=== PATIENT | female | born 1930 | race Caucasian/White ===

== ENCOUNTER 2016-11-06 14:40 | Inpatient (IN) | payer MEDICARE ==
[~2016-11-06] VITALS: Ht 162.6 cm; Wt 80.7 kg
--- NOTE | ~2016-11-06 | CON ---
PATIENT'S NAME: VIJAYA LORENZANA [facility] AGE: 86 Y [address] ROOM: [place] [address] [place] [facility] [place]: 11/06/2016 Consultation DISCHARGE DATE: FAMILY PHYSICIAN: Salinas Fortune MD ATTENDING PHYSICIAN: Salinas Fortune DATE OF CONSULTATION: 11/06/2016 REFERRING PHYSICIAN: Jeff Pfeiffer MD CHIEF COMPLAINT: Abdominal pain. HISTORY OF PRESENT ILLNESS: The patient is an 86-year-old female who states that she was feeling well this morning; however, after eating breakfast developed acute onset of abdominal pain, she felt nauseated at that time, was somewhat diaphoretic, and then had a loose bowel movement. This intermittent abdominal cramping and loose bowel movements persisted throughout the day. With her abdominal pain, she ultimately presented to the emergency room. She said she has had a history of constipation and intermittent abdominal pain, but never anything as severe as this. She was seen, evaluated, and had a CT scan that revealed evidence of colitis and ischemic colitis could not be ruled out. She did have a mildly elevated lactate at 2.3 and white blood cell count of 17.7. Her stool cultures were negative. She does have a remote history of AFib and is not on any anticoagulation. She has been hypertensive and currently she is having minimal pain. CURRENT ILLNESSES: History of AFib, hyperlipidemia, coronary artery disease, hypertension, and history of TIAs. PREVIOUS SURGERIES: 1. Recent breast surgery. 2. Cholecystectomy. 3. Laminectomy. 4. Appendectomy. 5. Hysterectomy. 6. Cardiac stents placed, most recent 2011. ALLERGIES: SHE HAS A LONG LIST OF ALLERGIES/INTOLERANCES THAT INCLUDE TOPROL, ACCUPRIL, DIOVAN, MICARDIS, CRESTOR, LOPRESSOR, DARVOCET, REGLAN, AZULFIDINE, CLONIDINE, AND NORVASC. SOCIAL HISTORY: PATIENT'S NAME: VIJAYA LORENZANA [facility] AGE: 86 Y [address] ROOM: [place] [address] [place] [facility] [place]: 11/06/2016 Consultation DISCHARGE DATE: FAMILY PHYSICIAN: Salinas Fortune MD ATTENDING PHYSICIAN: Salinas Fortune She is , nonsmoker, and nondrinker. FAMILY HISTORY: Noncontributory. REVIEW OF SYSTEMS: She denies headache or vision changes. She did have nausea as described above as well as diarrhea. She has history of constipation. Denies hematuria. No history of hyper or hypothyroidism. No diabetes. She does have hypertension. All other review of systems is negative. PHYSICAL EXAMINATION: GENERAL: Pleasant, cooperative, 86-year-old female, who is in no acute distress. VITAL SIGNS: She is afebrile, blood pressure is 150/78. HEENT: Head is normocephalic, atraumatic. Eyes are anicteric. NECK: Without lymphadenopathy. HEART: Regular rate and rhythm. No murmurs audible. LUNGS: Clear to auscultation bilaterally. ABDOMEN: Obese, rotund, bowel sounds are present. There is very mild tenderness to palpation. No rebound or guarding. EXTREMITIES: Warm. No edema. NEUROLOGICAL: Gross motor is intact. ASSESSMENT: Nonspecific colitis. PLAN: At this point in time, I have discussed the findings with Vijaya, she really has minimal abdominal pain at this time, her stools have been nonbloody, and I think it is reasonable to continue observation with bowel rest and antibiotic treatment for her colitis. We will follow her clinically for any signs and symptoms of worsening ischemia or perforation. MD LESLIE FUNG/eitan /[id number] d: 11/07/16 0118 t: 11/23/16 1502, CONSULTATION REPORT
--- NOTE | ~2016-11-06 | DS ---
PATIENT'S NAME: VIJAYA LORENZANA [facility] AGE: 86 Y [address] ROOM: [place] [address] [place] [facility] [place]: 11/06/2016 Discharge Summary DISCHARGE DATE: 11/09/2016 FAMILY PHYSICIAN: Salinas Fortune MD ATTENDING PHYSICIAN: Salinas Fortune DISCHARGE DIAGNOSES: 1. Descending colitis secondary to ischemic colitis versus infection. 2. Hypertension. 3. Hyperlipidemia. 4. Coronary artery disease. 5. Paroxysmal atrial fibrillation. PAST MEDICAL HISTORY: 1. History of breast cancer. 2. Osteoarthritis. CONSULTS: Surgery. HOSPITAL COURSE: Ms. Vijaya Lorenzana is an 86-year-old female with the above past medical history who presented to the ED on 11/06/2016 for abdominal pain and diarrhea. She was admitted to inpatient status due to descending colitis secondary to ischemic colitis versus infection (see H and P for imaging and lab). She was put on bowel rest and IV piperacillin and tazobactam with marked improvement over the following 2 days. On 11/08/2016, she tolerated a full day of general oral diet. On 11/09/2016, her IV piperacillin and tazobactam were discontinued, and she was discharged home on her home medications. DISCHARGE MEDICATIONS: 1. Verapamil hydrochloride SR tablet 180 mg twice daily. 2. Aspirin 81 mg daily. 3. Meclizine HCl 25 mg every night at bedtime as needed. 4. Acetaminophen 325 mg every 4 hours as needed. 5. Calcium carbonate 600 mg/vitamin D3 caplet twice daily. 6. Cholecalciferol 800 units once daily. 7. Hydroxychloroquine sulfate 200 mg once daily as needed. DIET: As tolerated. CONDITION: Good. DISPOSITION: She is discharged to home on her home medications with primary care followup in 7 to 10 days. PATIENT'S NAME: VIJAYA LORENZANA [facility] AGE: 86 Y [address] ROOM: [place] [address] [place] [facility] [place]: 11/06/2016 Discharge Summary DISCHARGE DATE: 11/09/2016 FAMILY PHYSICIAN: Salinas Fortune MD ATTENDING PHYSICIAN: Salinas Fortune DARRICK SHEPPARD, MEDICAL STUDENT FOR MD SULTANA NUÑEZ/fernandol /[id number] d: 11/09/16 1350 t: 11/22/16 1631, DISCHARGE SUMMARY
--- NOTE | ~2016-11-06 | ER ---
PATIENT'S NAME: VIJAYA LORENZANA [facility] AGE: 86 Y [address] ROOM: [address] [address] LOCATION: [facility] [place] ADMIT DATE: 11/06/2016 ER/Outpatient Report DISCHARGE DATE: FAMILY PHYSICIAN: Salinas Fortune MD ATTENDING PHYSICIAN: Salinas Fortune TIME OF ARRIVAL: 1440 hours. TIME OF EVALUATION: 1446 hours. CHIEF COMPLAINT: Abdominal pain. HISTORY OF PRESENT ILLNESS: The patient is an 86-year-old female who presents to the emergency department today with a chief complaint of abdominal pain. She reports it started 8 hours prior to arrival. She has had brown stool. It is left lower quadrant, kind of sharp. It is 4/10 in severity. She does have some nausea. No vomiting. Denies any fevers or chills. No urgency or painful urination. She does have urinary frequency. She denies any blood in her stool. No dark, tarry stools. She has crampy-type pain as well. PAST MEDICAL HISTORY: Paroxysmal atrial fibrillation, breast cancer, coronary artery disease, dyslipidemia, hypertension, and osteoarthritis. PAST SURGICAL HISTORY: Appendectomy, ankle, back, carpal tunnel, and cholecystectomy. SOCIAL HISTORY: The patient denies any tobacco use. Reports rare alcohol use. Denies any illicit drug use. ALLERGIES: TOPROL, ACCUPRIL, DIOVAN, MICARDIS, CRESTOR, LOPRESSOR, DARVOCET, REGLAN, AZULFIDINE, CLONIDINE, AND NORVASC. MEDICATIONS: Please see list. REVIEW OF SYSTEMS: All systems are reviewed by myself and are negative with the exception of those discussed in the HPI and Past Medical History. PATIENT'S NAME: VIJAYA LORENZANA [facility] AGE: 86 Y [address] ROOM: [address] [address] LOCATION: [facility] [place]MIT DATE: 11/06/2016 ER/Outpatient Report DISCHARGE DATE: FAMILY PHYSICIAN: Salinas Fortune MD ATTENDING PHYSICIAN: Salinas Fortune PHYSICAL EXAMINATION: VITAL SIGNS: Weight 85.7 kg, blood pressure 170/76, pulse 76, respiratory rate 18, temperature 97.9, and oxygen saturation 92% on room air. GENERAL: The patient is an 86-year-old female who appears stated age, in no acute distress. HEENT: Head is normocephalic and atraumatic. Pupils are equal, round, and reactive to light. There is no scleral icterus. NECK: Supple. There is no nuchal rigidity. CARDIOVASCULAR: Regular rate and rhythm. No murmurs, rubs, or gallops. LUNGS: Clear to auscultation bilaterally. No wheezes, rales, or rhonchi. ABDOMEN: Soft. Left lower quadrant tenderness to palpation. There is no rebound, rigidity, or guarding. Positive bowel sounds. MUSCULOSKELETAL: The patient moves all 4 extremities. SKIN: Warm and dry. LABORATORY DATA: Labs and x-rays are obtained. Lactate is 2.3. Ova and parasites are negative. Procalcitonin is less than 0.05. CMP is normal except for a sodium of 133 and calcium 8.3. LFTs normal. Lipase is normal. CK is normal. CK-MB is normal, and troponin is normal. EKG is obtained, is interpreted by myself, shows sinus rhythm with a rate of 72, MD interval 215, QTc is normal. No ST elevation, ST depression, or T-wave inversions. No significant change from 06/20/2016. Urinalysis shows 100 leukocyte esterase, positive nitrites, 30 protein, 50 ketones, and 10 blood. H pylori is negative. Fecal wbc's are few. Occult blood is negative. CBC is normal except for a white blood cell count of 17.7, ANC is 16.1. C difficile is negative. CT scan of the abdomen and pelvis is obtained with IV contrast. I have discussed the results with the radiologist. He does report there is nonspecific left-sided colitis, infectious versus inflammatory versus ischemic, as well as constipation. IMPRESSION: 1. Acute nonspecific left-sided colitis, infectious versus inflammatory versus ischemic. 2. Acute urinary tract infection, suspect bladder. 3. Sepsis due to acute nonspecific left-sided colitis and acute urinary tract infection. 4. Initial visit. EMERGENCY DEPARTMENT COURSE: The patient was brought back to the examination room. Seen and evaluated by myself. IV was established. Laboratory analysis and imaging were obtained as described above. The patient was given 4 mg of Zofran IV as well as 1 L of normal saline. I have discussed results with the patient. Her abdominal exam was repeated. She continues to have some mild left lower quadrant abdominal PATIENT'S NAME: VIJAYA LORENZANA [facility] AGE: 86 Y [address] ROOM: [address] [address] LOCATION: [facility] [place]MIT DATE: 11/06/2016 ER/Outpatient Report DISCHARGE DATE: FAMILY PHYSICIAN: Salinas Fortune MD ATTENDING PHYSICIAN: Salinas Fortune pain. The patient was initiated on Zosyn 4.5 g IV. I have discussed the case with Dr. Fortune, the patient's primary care doctor. He has seen and evaluated the patient down here in the emergency department, please see his dictation. I have also discussed the case with Dr. Pfeiffer, the general surgeon on-call, as the patient does have ischemic colitis on the differential. I do feel it is more likely to be infectious etiology at this time; however, with the patient's risk factors, surgery consult is warranted at this time. DISPOSITION: The patient is admitted under the care of Dr. Fortune in stable condition. DO LORENZO MACK/eitan /[id number] d: 11/07/16 1202 t: 11/13/16 0601, OUTPATIENT REPORT
--- NOTE | ~2016-11-06 | HP ---
PATIENT'S NAME: VIJAYA LORENZANA [facility] AGE: 86 Y [address] ROOM: [place] [address] [place]: [facility] [place]MIT DATE: 11/06/2016 History & Physical DISCHARGE DATE: FAMILY PHYSICIAN: Salinas Fortune MD ATTENDING PHYSICIAN: Salinas Fortune DATE OF SERVICE: ADDENDUM: HISTORY OF PRESENT ILLNESS: There was no melena, no hematemesis, no hematochezia. ASSESSMENT AND PLAN: 1. Descending colitis secondary to ischemic colitis versus diverticulitis versus infection versus inflammatory process. We will admit her to the hospital. She got 1 L normal saline bolus and 4.5 mg IV Zosyn in the ED. We will continue maintenance fluids, D5 normal saline with 25 mEq of KCl at 100 mL/h and continue her IV Zosyn. 2. She also has a urinary tract infection. It should be well covered by Zosyn. We will send her urine for a culture. DARRICK SHEPPARD, MEDICAL STUDENT FOR SALINAS FORTUNE MD AT/modl /[id number] D: [id number] T: [id number] HISTORY & PHYSICAL
--- NOTE | ~2016-11-06 | HP ---
PATIENT'S NAME: VIJAYA LORENZANA [facility] AGE: 86 Y [address] ROOM: [place] [address] [place] [facility] [place]: 11/06/2016 History & Physical DISCHARGE DATE: FAMILY PHYSICIAN: Salinas Fortune MD ATTENDING PHYSICIAN: Salinas Fortune DATE OF SERVICE: HISTORY OF PRESENT ILLNESS: Vijaya Lorenzana is an 86-year-old female, who presented to the ED for abdominal pain and diarrhea. This morning after eating breakfast, she started feeling nauseous and having abdominal pain. She had 3 to 4 episodes of emesis. She also had intense cramping of the whole abdominal region, tenesmus, diarrhea. She had diarrhea about 15 times throughout the day and felt better after a bowel movement. Of note, she complains of chronic constipation and straining at baseline. PAST MEDICAL HISTORY: Includes paroxysmal atrial fibrillation, breast cancer, coronary artery disease, hypercholesterolemia, hypertension, and osteoarthritis. PAST SURGICAL HISTORY: Includes appendectomy, ankle surgery, back surgery, carpal tunnel release, and cholecystectomy. PHYSICAL EXAMINATION: VITAL SIGNS: Blood pressure 170/76, heart rate 76, respirations 18, temperature 97.9, and oxygen saturation 90% on room air. Weight 85.7 kg. GENERAL: Elderly female, resting relatively comfortably on exam bed. CARDIOVASCULAR: Regular rate and rhythm. LUNGS: Clear to auscultation bilaterally. ABDOMEN: Hypoactive bowel sounds. Tenderness to palpation in the lower abdominal region. No distention. No rebound tenderness. No guarding. EXTREMITIES: No edema. Well perfused. LABORATORY DATA: White blood cell count 17.3 with an ANC of 16.1, neutrophil percentage of 90.4%; hemoglobin 13.2; platelets 228; hematocrit 39.9. Sodium is 133, potassium 3.7, chloride 97, bicarb is 23, BUN is 19, creatinine is 1.0, glucose 137. UA showed 100 leukocytes, positive nitrites, 30 protein, 50 ketones, 10 blood, 8 urobilinogen, no glucose. Fecal occult blood test was negative. There were few fecal leukocytes in her stool. Negative for ova and parasites. Negative for C. diff. Lipase of 89, CPK 73, CK-MB of 0.9, and troponin is 0.040. EKG showed sinus rhythm, normal QT. CT of her abdomen showed left-sided colitis, large stool. No abscess. PATIENT'S NAME: VIJAYA LORENZANA [facility] AGE: 86 Y [address] ROOM: [address] [address] [place] [facility] [place]: 11/06/2016 History & Physical DISCHARGE DATE: FAMILY PHYSICIAN: Salinas Fortune MD ATTENDING PHYSICIAN: Salinas Fortune MEDICATIONS: Include, 1. Verapamil 180 mg twice daily. 2. Meclizine 25 mg 1/2 to 1 tablet 3 times daily as needed. 3. Calcium with vitamin D 600-800 twice a day. 4. Aspirin 81 mg once daily. ASSESSMENT AND PLAN: She has descending colitis secondary to diverticulitis versus infection versus inflammatory. She received 1 L normal saline bolus and 4.5 g of IV Zosyn. She also received 4 mg of IV Zofran for nausea. Urinary tract infection: Her UA shows urinary tract infection, most likely urease positive. We will start her on an appropriate antibiotic. We will admit for inpatient status and continue the Zosyn for presumed diverticulitis. MD INES NUÑEZ/eitan /[id number] D: [id number] T: [id number] HISTORY & PHYSICAL
[~2016-11-06 14:40] MED LIST: ASPIRIN LO-DOSE81 MG PO; CALAN SR GENER180 MG PO; MECLIZINE HCL25 MG PO; NORCO 5-325 TA1 EACH PO; PLAQUENIL200 MG PO; TYLENOL325 MG PO
[2016-11-06 15:34] LABS: BASOPHIL % 0.2 %; EOSINOPHIL % 0.2 %; HEMATOCRIT 39.9 % (30.0-46.0); HEMOGLOBIN 13.2 g/dL (10.0-15.0); IMMATURE GRANULOCYTE # 0.1 K/uL (0.0-0.3); IMMATURE GRANULOCYTE % 0.5 %; LYMPHOCYTE # 0.9 K/uL (0.8-4.0); LYMPHOCYTE % 4.8 %; MCH 30.9 pg (27.0-34.0); MCHC 33.1 gm/dL (32.0-36.5); MCV 93.4 fl (83.0-98.0); MONOCYTE # 0.7 K/uL (0.0-1.0); MONOCYTE % 3.9 %; MPV 9.9 fl (9.4-12.4); NEUTROPHIL # (ANC) 16.1 K/uL (1.8-7.8); NEUTROPHIL % 90.4 %; NRBC % 0 /100WBC (0-0.00); PLATELET COUNT 228 K/uL (150-450); RBC 4.27 M/uL (3.00-5.00); RDW-CV 13.1 % (11.9-14.6)
[2016-11-06 15:37] LABS: BLOOD URINE 10 /UL (NEGATIVE); GLUCOSE URINE NEGATIVE (NEGATIVE); KETONE URINE 50 mg/dL (NEGATIVE); LEUKOCYTES URINE 100 /UL (NEGATIVE); NITRITE URINE POSITIVE (NEGATIVE); PROTEIN URINE 30 mg/dL (NEGATIVE); UROBILINOGEN URINE 8 mg/dL (NORMAL)
[2016-11-06 15:38] LABS: WBC 17.7 K/uL (4.0-11.0)
[2016-11-06 15:40] LABS: COLOR URINE AMBER (YELLOW); TURBIDITY URINE 2+ (CLEAR)
[2016-11-06 15:51] LABS: BACTERIA URINE RARE (NEGATIVE); CRYSTALS URINE CALCIUM OXALATE (NEGATIVE); RBC URINE 0-2 #/HPF (NEGATIVE); WBC URINE 0-2 #/HPF (NEGATIVE)
[2016-11-06 15:53] LABS: ALBUMIN 3.6 gm/dL (3.5-5.0); ALK PHOS 67 IU/L (33-138); ALT 14 IU/L (12-78); ANION GAP 16.7 (10.0-19.0); AST 17 IU/L (10-40); BLOOD UREA NITROGEN 19 mg/dL (6-24); CALCIUM 8.3 mg/dL (8.5-10.5); CHLORIDE 97 mMol/L (96-110); CO2 23 mMol/L (22-32); CPK 73 IU/L (21-215); ESTIMATED GFR (MDRD EQUATION) 52; POTASSIUM 3.7 mMol/L (3.7-5.1); SODIUM 133 mMol/L (135-145); TOTAL BILIRUBIN 0.7 mg/dL (0.0-1.5); TOTAL PROTEIN 6.6 g/dL (6.0-8.4)
[2016-11-06] MEDS ORDERED: CALCIUM 600 +1 EA13 PO (18:38)
[2016-11-06] MEDS ORDERED: VITAMIN D3400 UNI1 PO (18:39)
[2016-11-06] MEDS ORDERED: PLAQUENIL200 MG PO (18:40)
[2016-11-06 19:23] LABS: BILIRUBIN URINE NEGATIVE (NEGATIVE); BLOOD URINE NEGATIVE /UL (NEGATIVE); COLOR URINE YELLOW (YELLOW); GLUCOSE URINE NEGATIVE (NEGATIVE); KETONE URINE NEGATIVE (NEGATIVE); LEUKOCYTES URINE 25 /UL (NEGATIVE); NITRITE URINE NEGATIVE (NEGATIVE); PROTEIN URINE NEGATIVE (NEGATIVE); TURBIDITY URINE 1+ (CLEAR); UROBILINOGEN URINE NORMAL (NORMAL)
[2016-11-06 19:46] LABS: BACTERIA URINE FEW (NEGATIVE); RBC URINE 0-2 #/HPF (NEGATIVE); WBC URINE 0-2 #/HPF (NEGATIVE)
--- NOTE | 2016-11-06 22:19 | NUR ---
Patient admitted to [facility]. Had breakfast this morning and felt nauseated and started having continuous diarrhea. told her to come to the hospital. Patient has history of R) mastectomy, R) hip replacement, Appy, sloan, heart cath, hysterectomy, lamectomy. Health history of A-fib, pneumonia, flu in 2017, UTI, heartburn, arthritis, urgency and ulcer. Patient Alert and oriented. No emesis. Reporting pain tolerable. Several drug allergies, all up to date on kardex.
--- NOTE | 2016-11-07 02:46 | NUR ---
Significant Event: Patient alert and oriented X4. Up with stand by assist just to have someone hold IV pole and unhook pneumatics. Tolerates activity well. Lives at home with . Denies pain and nausea this shift. States she is feeling much better. Voiding well. IV to L) wrist with D5 NS with 20Meq K+ at 100ml/hr and intermittent zosyn. ON room air. Vitals stable. History of A-fib. LImb alert to R) side from mastectomy. One loose stool this shift. Passing gas. NPO. Consult for Dr. Pfeiffer today. Hard of hearing in R) ear. Follow up: Monitor pain and nausea.
[2016-11-07 05:23] LABS: BASOPHIL % 0.4 %; EOSINOPHIL # 0.2 K/uL (0.0-0.5); EOSINOPHIL % 3.1 %; HEMATOCRIT 35.7 % (30.0-46.0); HEMOGLOBIN 11.7 g/dL (10.0-15.0); IMMATURE GRANULOCYTE % 0.3 %; LYMPHOCYTE # 1.7 K/uL (0.8-4.0); LYMPHOCYTE % 24.7 %; MCHC 32.8 gm/dL (32.0-36.5); MCV 94.7 fl (83.0-98.0); MONOCYTE # 0.6 K/uL (0.0-1.0); MONOCYTE % 8.6 %; MPV 9.7 fl (9.4-12.4); NEUTROPHIL # (ANC) 4.4 K/uL (1.8-7.8); NEUTROPHIL % 62.9 %; NRBC % 0 /100WBC (0-0.00); PLATELET COUNT 205 K/uL (150-450); RBC 3.77 M/uL (3.00-5.00); RDW-CV 13.2 % (11.9-14.6)
[2016-11-07 05:42] LABS: ALBUMIN 2.8 gm/dL (3.5-5.0); CALCIUM 7.7 mg/dL (8.5-10.5); POTASSIUM 3.8 mMol/L (3.7-5.1); TOTAL PROTEIN 5.5 g/dL (6.0-8.4)
[2016-11-07 05:43] LABS: ANION GAP 12.8 (10.0-19.0); TOTAL BILIRUBIN 0.5 mg/dL (0.0-1.5)
--- NOTE | 2016-11-07 12:58 | NUR ---
Met with patient while she sat in the recliner today. Introduced myself and the role of the CM department. Patient [place]. She is independent with her ADL's. 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 She has no concerns with discharge at this time. Will continue to follow and offer supports as needed.
--- NOTE | 2016-11-07 17:53 | NUR ---
Patient is alert and oriented, VSS, on room air. SBA, IV to L) wrist infusing D5NS with 20 mEq of K+Cl- at 100ml/hr. Clear liquid diet has been tolerating good. PLATINUM in R) ear.
--- NOTE | 2016-11-08 04:21 | NUR ---
Significant Event: Patient alert and oriented X4. Up with stand by assist and IV pole. Pnuematics on tonight. Refuses pain or nausea. Tolerating clear liquids well. Voiding well. IV to L) wrist with d5 NS and 20K+ running at 100. Intermittent IV zosyn. Still having loose BMs. C-diff negative. Slept well this shift. VItals stable and on room air. Follow up: Monitor for nausea
[2016-11-08 04:55] LABS: BASOPHIL % 0.7 %; EOSINOPHIL # 0.4 K/uL (0.0-0.5); EOSINOPHIL % 6.3 %; HEMATOCRIT 35.5 % (30.0-46.0); HEMOGLOBIN 11.3 g/dL (10.0-15.0); IMMATURE GRANULOCYTE % 0.2 %; LYMPHOCYTE # 1.7 K/uL (0.8-4.0); LYMPHOCYTE % 28.4 %; MCHC 31.8 gm/dL (32.0-36.5); MCV 97.3 fl (83.0-98.0); MONOCYTE # 0.5 K/uL (0.0-1.0); MONOCYTE % 8.8 %; MPV 9.7 fl (9.4-12.4); NEUTROPHIL # (ANC) 3.4 K/uL (1.8-7.8); NEUTROPHIL % 55.6 %; NRBC % 0 /100WBC (0-0.00); PLATELET COUNT 184 K/uL (150-450); RBC 3.65 M/uL (3.00-5.00); RDW-CV 13.3 % (11.9-14.6); WBC 6.1 K/uL (4.0-11.0)
[2016-11-08 05:16] LABS: ANION GAP 9.9 (10.0-19.0); CALCIUM 7.7 mg/dL (8.5-10.5); CREATININE 0.9 mg/dL (0.5-1.1); POTASSIUM 3.9 mMol/L (3.7-5.1)
--- NOTE | 2016-11-08 11:46 | NUR ---
Reviewed chart. Patient doing well. Advancing diet today. Possible discharge to home tomorrow with no additional needs.
--- NOTE | 2016-11-08 17:05 | NUR ---
Patient is alert and oriented, VSS, on room air. Up with SBA. Regular diet, tolerating well, did have one episode of abdominal cramping and stool about 90 minutes after eating but has not had any since. IV to L posterior forearm is infusing zosyn otherwise saline locked. Possible discharge tomorrow.
--- NOTE | 2016-11-09 04:32 | NUR ---
SIGNIFICANT EVENT: Patient alert & oriented. Slightly hypertensive, other VSS on RA. [place] on R) side. SBA. Intermittent IV antibiotics to L) FA - flushes well, no blood return. Patient c/o L) shoulder pain - 0.5 IV dilaudid x1 at 0202 with noted relief. Regular diet. Pleasant and cooperative with cares. Possible DC home today.
--- NOTE | 2016-11-09 12:58 | NUR ---
Discharge: Pt. was educated on UTI in women, colitis, d/c instructions, and scripts. No new medications. Verbalized understanding, no questions or concerns. Left with all belongings and paperwork. IV removed by primary RN. Taken to front door by aide and driven home by family.
--- NOTE | 2016-11-09 14:04 | NUR ---
Patient is to discharge to home today with no additional needs.
== END 2016-11-09 13:20 | disposition disaster alternative care site (69) | DRG 392 ==
LOC: GMED 14:40 → GMSU 17:10
PROVIDERS: Emergency Medicine; ADMIT Obstetrics & Gynecology Obstetrics
DX: K52.9 Noninfective gastroenteritis and colitis, unspecified (principal); I48.0 Paroxysmal atrial fibrillation; N39.0 Urinary tract infection, site not specified; Z79.82 Long term (current) use of aspirin; I25.10 Atherosclerotic heart disease of native coronary artery without angina pectoris; I10 Essential (primary) hypertension; M81.0 Age-related osteoporosis without current pathological fracture; E78.00 Pure hypercholesterolemia, unspecified; Z85.3 Personal history of malignant neoplasm of breast; Z86.73 Personal history of transient ischemic attack (TIA), and cerebral infarction without residual deficits
CPT/HCPCS: J0131; J1170; J1650; J2405; J2543; J3480; J7030; J7050; Q9967